=== PATIENT | male | born 1995 ===

== ENCOUNTER 2019-12-25 08:53 | Emergency (ER) | payer BC ==
[2019-12-25] MEDS ORDERED: Lidocaine 1% 10 ML MDV INJECT ONE (08:56)
[2019-12-25] MEDS ORDERED: Lactated Ringers 1,000 ML IV ONE (08:57)
[2019-12-25] MEDS ORDERED: Sodium Chloride 0.9% 10 ML Syringe FLUSH PRN (08:57)
[2019-12-25] MEDS ORDERED: Sodium Chloride 0.9% 2.5 ML Syringe FLUSH PRN (08:57)
[2019-12-25] MEDS ORDERED: Bacitracin Oint 1 GM U/D Packet TOP ONE (09:15)
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
[2019-12-25 09:31] LABS: BLOOD UREA NITROGEN,BUN 7 mg/dL (7.0-18.0); CARBON DIOXIDE,CO2 24.8 mmol/L (21.0-32.0); CHLORIDE,CL 105 mmol/L (98-107); GLUCOSE RANDOM 112 mg/dL (74-106); LIPASE 190 U/L (73-393); SODIUM,NA 143 mmol/L (136-148)
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
--- NOTE | 2019-12-25 09:52 | CT ---
The abdomen/pelvis CT report is included with today`s chest CT report. Please note that all CT scans at this facility use dose modulation, iterative reconstruction, and/or weight-based dosing when appropriate to reduce radiation dose to as low as reasonably achievable. Dictated by Chucho Watkins MD @ Dec 25 2019 9:42AM Signed by Dr. Chucho Watkins @ Dec 25 2019 9:51AM
[2019-12-25] MEDS ORDERED: Iopamidol 755 MG/ML 200 ML Multipack Bottle IVPUSH ONE (10:07)
== END 2019-12-25 11:11 | disposition home or self-care (01) ==
LOC: MW.ED 08:53
DX: S01.81XA Laceration without foreign body of other part of head, initial encounter (principal); S20.211A Contusion of right front wall of thorax, initial encounter; S40.812A Abrasion of left upper arm, initial encounter; S40.811A Abrasion of right upper arm, initial encounter; F12.10 Cannabis abuse, uncomplicated; F14.10 Cocaine abuse, uncomplicated; F10.10 Alcohol abuse, uncomplicated; Y90.6 Blood alcohol level of 120-199 mg/100 ml; Z88.0 Allergy status to penicillin; V89.2XXA Person injured in unspecified motor-vehicle accident, traffic, initial encounter
CPT/HCPCS: 12013; 36415; 70450; 71260; 72125; 74177; 80053; 80305; 80307; 81001; 83690; 85025; 85610; 85730; 86850; 86900; 86901; 96360; 99285; J2001; J7120; Q9967